=== PATIENT | male | born 1960 | race Caucasian/White ===

== ENCOUNTER → 2016-08-11 | Day surgery (SDC) | payer OTHER ==
[~2016-08-11] VITALS: Ht 175.3 cm; Wt 81.5 kg
[~2016-08-11] MED LIST: *morphine SULFATE 8 MG/ML PERIprocedure ONLY ONE; ACETAMINOPHEN 1000 MG/100 ML VIAL IV ONE; ACETAMINOPHEN 1000 MG/100 ML VIAL IV SCH; AMLO10TA2 PO; BUPIVACAINE/EPINEPHRINE 0.25% PF 10 ML VIAL ONE; CHLORHEXIDINE GLUCONATE 2 % 1 PACK (2 CLOTHS) TOPICAL PRN; CITA10TA4 PO; DO NOT ADM ANY ANTICOAGULANT DRUGS PRN; FAMOTIDINE 20 MG/2 ML VIAL ONE; FLEC100T PO; HYDR-3533 PO; INSULIN HUMAN REGULAR 1,000 UNITS/10 ML VIAL SQ PRN; KETOROLAC TROMETHAMINE 30 MG/ML (IVP) VIAL IV PUSH ONE; LACTATED RINGER'S 1000 ML INJ 2,000 ML IV ONE; LACTATED RINGER'S 1000 ML IV PRN; LISI10TA PO; METOPROLOL TARTRATE 25 MG TAB PO PRN; MIDAZOLAM HCL 2 MG/2 ML VIAL ONE; MORPHINE SULFATE 4 MG/ML INJ IV PRN; NEOSTIGMINE 3 MG/3 ML SYR IV ONE; OMEP20TA PO; ONDANSETRON HCL 4 MG/2 ML VIAL IV PRN; ONDANSETRON HCL 4 MG/2 ML VIAL IV PUSH ONE; ONDANSETRON HCL 4 MG/2 ML VIAL IV PUSH SCH; ONDANSETRON HCL 4 MG/2 ML VIAL ONE; POVIDONE IODINE 5% (ANTISEPSIS KIT) 4 APPLICATIONS EACH NARE PRN; PROPOFOL 200 MG/20 ML AMP IV ONE; SODIUM CHLORID 0.9% 500 ML IV PRN; SODIUM CHLORIDE 0.9% FLUSH 10 ML FLUSH IV FLUSH PRN; SODIUM CHLORIDE 0.9% FLUSH 10 ML FLUSH IV FLUSH SCH; ceFAZolin 2 GM PREMIX 50 ML IV SCH; ePHEDrine/NS 25 MG/5 ML SYR IV ONE; fentaNYL CITRATE 250 MCG/5 ML AMP ONE; metroNIDAZOLE 500 MG INJ 100 ML IV ONE; metroNIDAZOLE 500 MG INJ 100 ML IV SCH; oxyCODONE/ACETAMINOPHEN 5 MG/325 MG TAB PO PRN
[2016-08-11 07:47] VITALS: BP 142/82; PULSE 74; RESP 20; TEMP 98.7; O2SAT 98
[2016-08-11 15:24] VITALS: BP 141/79; PULSE 94; RESP 20; TEMP 98; O2SAT 93
--- NOTE | 2016-08-13 18:51 | MP ---
cc: SAYRA BEE DATE OF SURGERY: 08/11/2016. PREOPERATIVE DIAGNOSIS: Umbilical hernia POSTOPERATIVE DIAGNOSIS: Umbilical hernia. OPERATIVE PROCEDURE PERFORMED: Laparoscopic-assisted umbilical hernia repair with Proceed Ventral Patch 6.4 cm. SURGEON: Sayra Bee MD. ANESTHESIA: General endotracheal anesthesia. ESTIMATED BLOOD LOSS: Scant. FINDINGS: Umbilical defect. SPECIMENS: None. COMPLICATIONS: None. DESCRIPTION OF THE PROCEDURE IN DETAIL: The patient was brought to the operating room and placed on the operating table in te supine position. Bilateral sequential inflation devices were placed on the lower extremities. General anesthesia was instituted. Antibiotics were initiated. The abdomen was prepped and draped sterilely. The infraumbilical region was anesthetized with 0.25% Marcaine with epinephrine. A curvilinear incision was made below the umbilicus and this was taken through the subcutaneous tissue. The umbilical stalk was isolated. The hernia sac was excised. The defect was identified. A ventral patch 6.4-cm was opened on the back table. It was introduced into the peritoneal space. The anterior rectus was dissected on the lateral portions minimally. The tabs of the patch were secured to the anterior rectus with #0 Vicryl sutures. A point in the left upper quadrant was identified and anesthetized with 0.25% Marcaine with epinephrine. A skin incision was made. A 5 mm OptiVu port was placed under direct vision. CO2 was insufflated and the repair was inspected. Using the laparoscope. The patch appeared to lie well. There was a lip of omentum between the patch and the peritoneum. This was taken down using finger dissection. At this point, the carbon dioxide was released. The umbilicus was then secured to the anterior rectus. The subcutaneous tissue was reapproximated with 3-0 Vicryl and skin edges were approximated with 4-0 Monocryl. The abdominal wall was cleaned and a sterile dressing placed. MD ESTELLA Mcclain/TR /12:34 PM /6:45 PM [facility]ITALMarco A
== END | disposition home or self-care (01) ==
LOC: HSDC 06:38
PROVIDERS: ATTEND Surgery
DX: K42.9 Umbilical hernia without obstruction or gangrene (principal); I10 Essential (primary) hypertension; K21.9 Gastro-esophageal reflux disease without esophagitis; I48.0 Paroxysmal atrial fibrillation; R06.83 Snoring; J30.9 Allergic rhinitis, unspecified
CPT/HCPCS: 00750; 49652; C1781; J0131; J0690; J2250; J2270; J2405; J2710; J3010; J7120